=== PATIENT | female | born 1990 | race Caucasian/White ===

== ENCOUNTER 2017-08-03 12:57 | Emergency (ER) | payer SELFPAY ==
[~2017-08-03] VITALS: Ht 162.6 cm; Wt 72.6 kg
[2017-08-03 13:41] VITALS: BP 132/76
[2017-08-03] MEDS: EYE-STREAM OPHTH SOLUTION 120 ML BOTTLE. OD ONE (14:00)
[2017-08-03] MEDS: FLUORESCEIN OPHTH TEST STRIP. OD ONE (14:00)
[2017-08-03] MEDS: TETRACAINE 0.5% OPHTH SOLUTION 4ML BOTTLE. OD ONE (14:00)
[2017-08-03] MEDS ORDERED: HYDR-971 PO (14:10)
[2017-08-03] MEDS ORDERED: OFLO5DRO OD (14:10)
--- NOTE | 2017-08-03 14:10 | PHYS DOC ---
Past Medical History Past Medical History: Hypertension Past Surgical History: , Tubal ligation Alcohol Use: Occasionally Drug Use: None Adult General Chief Complaint Chief Complaint: EYE PROBLEMS [facility] HPI Patient is a 27 year old female presents to the emergency room stating that she 's had 3 day history of her right eye being red. She states that she had a friend that works with an community marketing coordinator to provided them with erythromycin. She states she's been placing erythromycin into the eye with no relief. She states redness has actually increased. Patient states she does wear contact lenses. Patient states that she has no change in her vision. Patient denies fever chills or nausea or vomiting. She does state she has a headache. Patient also states that her last tetanus immunization is unknown. Review of Systems Review of Systems Constitutional: Denies fever or chills [] Eyes: Denies change in visual acuity, C/o right eye redness, and eye pain [] HENT: Denies nasal congestion or sore throat [] Respiratory: Denies cough or shortness of breath [] Cardiovascular: No additional information not addressed in HPI [] GI: Denies abdominal pain, nausea, vomiting, bloody stools or diarrhea [] : Denies dysuria or hematuria [] Musculoskeletal: Denies back pain or joint pain [] Integument: Denies rash or skin lesions [] Neurologic: Denies headache, focal weakness or sensory changes [] Endocrine: Denies polyuria or polydipsia [] Current Medications Current Medications Current Medications Medications (Trade) Dose Ordered Sig/[facility] Start Time Stop Time Status Last Admin Dose Admin Balanced Salt Solution (Eye-Stream) 120 ml 1X ONCE 08/03/17 14:00 08/03/17 14:01 DC Fluorescein Sodium (Ful-Chandni) 1 strip 1X ONCE 08/03/17 14:00 08/03/17 14:01 DC Tetracaine HCl (Tetracaine) 1 drop 1X ONCE 08/03/17 14:00 08/03/17 14:01 DC Allergies Allergies Allergies Coded Allergies Type Severity Reaction Last Updated Verified No Known Drug Allergies 09/27/16 No Physical Exam Physical Exam Constitutional: Well developed, well nourished, no acute distress, non-toxic appearance. [] HENT: Normocephalic, atraumatic, bilateral external ears normal, oropharynx moist, no oral exudates, nose normal. Patient was noted to have redness in the sclera areas. Patient with no drainage or discharge from the eye. Eyes: PERRLA, EOMI, conjunctiva normal, no discharge. [] Neck: Normal range of motion, no tenderness, supple, no stridor. [] Cardiovascular:Heart rate regular rhythm, no murmur [] Lungs & Thorax: Bilateral breath sounds clear to auscultation [] Extremities: No tenderness, no cyanosis, no clubbing, ROM intact, no edema. [] Neurologic: Alert and oriented X 3, normal motor function, normal sensory function, no focal deficits noted. [] Psychologic: Affect normal, judgement normal, mood normal. [] Current Patient Data Vital Signs Vital Signs Date Time Temp Pulse Resp B/P (MAP) Pulse Ox O2 Delivery O2 Flow Rate FiO2 08/03/17 13:41 97.3 96 16 100 Room Air 97.3 EKG EKG [] Radiology/Procedures Radiology/Procedures [] Course & Med Decision Making Course & Med Decision Making Pertinent Labs and Imaging studies reviewed. (See chart for details) Patient with fluorescein uptake pinpoint area noted in that 6:30 area. Patient will be provided with ofloxacin with recommendations to stop using the erythromycin. She'll be provided with hydrocodone for severe pain and discomfort. She was instructed this medication will cause drowsiness do not take any be alert and oriented. Also recommended ibuprofen during the day. Patient agrees with discharge instructions treatment regimens and follow-up recommendations. Recommended following up with an community marketing coordinator in the next 1- 2 days. All questions and concerns been answered at patient's bedside. Patient refused to have her tetanus immunization updated; [] Dragon Disclaimer Dragon Disclaimer This electronic medical record was generated, in whole or in part, using a voice recognition dictation system. Departure Departure Impression: Primary Impression: Right corneal abrasion Disposition: 01 HOME, SELF-CARE Condition: STABLE Referrals: MILENA TYLER MD (PCP) TEDDY GARCIA MD Patient Instructions: Eye - Corneal Abrasion, [id number] Additional Instructions: Activity as tolerated Medication as prescribed Nem[place]olin for severe pain. This medication will cause drowsiness do not take if you need to be alert and oriented You may cover the right eye to help with pain. Followup with community marketing coordinator in 1-2 days Return to emergency department as needed for signs and symptoms that become worse. Scripts Hydrocodone/Apap 5-325 (NORCO 5-325 TABLET) 1 Each Tablet 1 TAB PO PRN Q6HRS Y for PAIN, #10 TAB 0 Refills Prov: ALEXANDER COLMENARES APRN 08/03/17 Ofloxacin (OCUFLOX) 5 Ml Drops 1-2 DROP OD BID, #1 BOTTLE Prov: ALEXANDER COLMENARES APRN 08/03/17 Problem Qualifiers Primary Impression: Right corneal abrasion Encounter type: initial encounter Qualified Codes: S05.01XA - Injury of conjunctiva and corneal abrasion without foreign body, right eye, initial encounter ALEXANDER COLMENARES APRN Aug 03, 2017 14:10
== END 2017-08-03 14:18 | disposition home or self-care (01) ==
LOC: ER 12:57
DX: S05.01XA Injury of conjunctiva and corneal abrasion without foreign body, right eye, initial encounter (principal); I10 Essential (primary) hypertension; X58.XXXA Exposure to other specified factors, initial encounter; Y93.89 Activity, other specified; Y92.89 Other specified places as the place of occurrence of the external cause; Y99.8 Other external cause status
CPT/HCPCS: 99284